=== PATIENT | male | born 1995 | race Two or more races ===

== ENCOUNTER 2020-10-15 17:15 | Emergency (ER) | payer OTHER ==
[2020-10-15] MEDS ORDERED: CEPHALEXIN500 MG PO (18:15)
== END 2020-10-15 18:30 | disposition home or self-care (01) ==
LOC: FER 17:15
DX: S61.411A Laceration without foreign body of right hand, initial encounter (principal); Z23 Encounter for immunization; W27.0XXA Contact with workbench tool, initial encounter; Y92.009 Unspecified place in unspecified non-institutional (private) residence as the place of occurrence of the external cause
CPT/HCPCS: 90471; 90715

== ENCOUNTER 2020-10-23 11:44 | Emergency (ER) | payer OTHER ==
[~2020-10-23 11:44] MED LIST: CEPHALEXIN500 MG PO
== END 2020-10-23 15:14 | disposition home or self-care (01) ==
LOC: FER 11:44
DX: S61.411D Laceration without foreign body of right hand, subsequent encounter (principal); X58.XXXD Exposure to other specified factors, subsequent encounter
CPT/HCPCS: 90471